=== PATIENT | male | born 1995 | race Hispanic/Latino ===

== ENCOUNTER 2020-12-25 11:29 | Emergency (ER) | payer SELFPAY ==
[2020-12-25] MEDS ORDERED: SODIUM CHLORIDE 0.9% 500 ML 500 ML IV ONE (11:51)
[2020-12-25] MEDS ORDERED: ACETAMINOPHEN 500 MG TAB PO STA (11:51)
[2020-12-25] MEDS ORDERED: ACETAMINOPHEN 500 MG TAB ONE (11:51)
[2020-12-25 12:12] LABS: Basophils % (Auto) 0.4 % (0.0-1.8); Eosinophils % (Auto) 0.2 % (0.0-4.3); Hematocrit 44.2 % (35.5-45.6); Hemoglobin 15.1 gm/dl (11.8-15.2); Lymphocytes # (Auto) 1.6 K/mm3 (1.2-5.4); Lymphocytes % (Auto) 11.8 % (13.4-35.0); Mean Corpuscular HGB Conc 34 % (32-34); Mean Corpuscular Volume 87 fl (84-94); Monocytes # (Auto) 1.6 K/mm3 (0.0-0.8); Platelet Count 332 K/mm3 (140-440); Red Cell Distribution Width 12.7 % (13.2-15.2)
--- NOTE | 2020-12-25 12:15 | Event Note ---
ED Screening Note Date of service: 12/25/20 Time: 12:11 ED Screening Note: Pt presents with c/o fever, and URI symptoms Pt reports he has been having issues with his sinuses x 1 week. Mainly left retroorbital and left maxillary area. He has been taking OTC meds without relief. He states he started with subjective fever last night, feeling dizzy and Sore throat He reports mild ASHRAF and slight nausea. He denies cough, SOB, wheezing, neck pain, abdominal pain or UTI symptoms VS show pt with elevated temp of 101 and HR of 142 -- CODE sepsis was initiated This initial assessment/diagnostic orders/clinical plan/treatment(s) is/are subject to change based on patients health status, clinical progression and re- assessment by fellow clinical providers in the ED. Further treatment and workup at subsequent clinical providers discretion. Patient/guardian urged not to elope from the ED as their condition may be serious if not clinically assessed and managed. Initial orders include: Sepsis order set
[2020-12-25 12:22] LABS: INR 0.97 (0.87-1.13)
--- NOTE | 2020-12-25 12:32 | XRay Report ---
CHEST 2 VIEWS INDICATION: possible Sepsis. COMPARISON: None FINDINGS: Support devices: None. Heart: Within normal limits. Lungs: No acute air space or interstitial disease. Pleura: No significant pleural effusion. No pneumothorax. Additional findings: None. IMPRESSION: 1. No acute findings. Signer Name: Chris Madrid MD Signed: 12/25/2020 12:27 PM Workstation Name: [id number]
[2020-12-25 12:59] LABS: Alanine Aminotransferase 44 units/L (7-56); Albumin 4.3 g/dL (3.9-5); BUN/Creatinine Ratio 7; Blood Urea Nitrogen 6 mg/dL (9-20); Hemolysis Index 4
--- NOTE | 2020-12-25 13:44 | Emergency Department Report ---
ED General Adult HPI - General Chief complaint: Dental/Oral Stated complaint: i have sinus issues and my face and teeth hurt PUI?: Yes Time Seen by Provider: 12/25/20 13:21 Source: patient, RN notes reviewed Mode of arrival: Ambulatory Limitations: No Limitations - History of Present Illness Initial comments: The patient was evaluated in the emergency department for symptoms described in the history of present illness. He/she was evaluated in the context of the global COVID-19 pandemic, which necessitated consideration that the patient might be at risk for infection with the virus that causes COVID-19. Institutional protocols and algorithms that pertain to the evaluation of patients at risk for COVID-19 are in a state of rapid change based on information released by regulatory bodies including the CDC and federal and state organizations. These policies and algorithms were followed during the patient's care in the emergency department. Please note that these policies, procedures and recommendations changed on a rapid basis. During the entire history and physical examination, I had on complete personal protective equipment. This is a 25-year-old gentleman. He is not known to myself previously. He denies chronic medical conditions. He presents to the ER with a complaint of 1 week supraorbital facial pressure, and left retro-orbital and left maxillary pressure and pain. He endorses chills over the past few days, and he endorses dentalgia and dental pain over tooth #16, 17 and 18. There is no stridor or trismus. There is no malocclusion. He has some sensitivity to cold and heat. The patient denies significant neck pain, chest pain, abdominal pain, shortness of breath. He had some loss of taste a few days ago, but this is now resolved. No Covid exposures that he is aware of. No urinary symptoms. No diarrhea. He initially had some improvement with [id number] remedies, such as cold and and flu/sinus medicine, but now he feels somewhat worse. He also has a chronically "droopy" left eye, but he feels like his "droop" on the superior eyelid is more prominent than usual, and he also feels that his left cheek, and eyelids are more "puffy" than usual. -: Gradual, days(s) Location: head, face, eyes (Left periorbital region) Radiation: non-radiation Severity scale (0 -10): 9 Quality: aching Consistency: constant Improves with: medication, rest Worsens with: movement, other (Palpation) - Related Data Previous Rx's Medication Instructions Recorded Last Taken Type Acetaminophen [Non-Aspirin Extra 500 mg PO Q6HR PRN #30 tablet 12/25/20 Unknown Rx Strength] Amoxicillin/Potassium Clav 1 each PO BID #13 tablet 12/25/20 Unknown Rx [Augmentin 875-125 Tablet] Fluticasone [Flonase] 1 spray NS QDAY #1 bottle 12/25/20 Unknown Rx Ibuprofen [Motrin] 600 mg PO Q8H PRN #30 tablet 12/25/20 Unknown Rx Ondansetron [Zofran Odt] 4 mg PO Q8HR PRN #20 tab.rapdis 12/25/20 Unknown Rx Allergies Allergy/AdvReac Type Severity Reaction Status Date / Time No Known Allergies Allergy Unverified 12/25/20 11:48 ED Review of Systems ROS: Stated complaint: SINUS ISSUES/FEVER Other details as noted in HPI Constitutional: chills, fever. denies: malaise, weakness Eyes: denies: eye pain, eye discharge, vision change ENT: dental pain, congestion. denies: ear pain, throat pain, hearing loss, epistaxis Respiratory: denies: cough Cardiovascular: denies: chest pain Gastrointestinal: denies: abdominal pain Genitourinary: denies: dysuria Musculoskeletal: myalgia Neurological: headache. denies: weakness Hematological/Lymphatic: denies: easy bleeding ED Past Medical Hx - Past Medical History Previous Medical History?: No - Surgical History Past Surgical History?: No - Social History Smoking Status: Current Every Day Smoker Substance Use Type: None - Medications Home Medications: Home Medications Medication Instructions Recorded Confirmed Last Taken Type Acetaminophen [Non-Aspirin Extra 500 mg PO Q6HR PRN #30 tablet 12/25/20 Unknown Rx Strength] Amoxicillin/Potassium Clav 1 each PO BID #13 tablet 12/25/20 Unknown Rx [Augmentin 875-125 Tablet] Fluticasone [Flonase] 1 spray NS QDAY #1 bottle 12/25/20 Unknown Rx Ibuprofen [Motrin] 600 mg PO Q8H PRN #30 tablet 12/25/20 Unknown Rx Ondansetron [Zofran Odt] 4 mg PO Q8HR PRN #20 tab.rapdis 12/25/20 Unknown Rx ED Physical Exam - General Limitations: No Limitations General appearance: alert, anxious - Head Head exam: Present: atraumatic, normocephalic - Eye Eye exam: Present: PERRL, EOMI, periorbital swelling, other (Visual acuity intact to finger counting, color perception, reading at a close distance). Absent: normal appearance (Left eyelid appears to be minimally depressed, however, patient able to elevate without significant difficulty), nystagmus - ENT ENT exam: Present: mucous membranes dry, TM's normal bilaterally, normal external ear exam, other (There is maxillary sinus tenderness, there is frontal sinus tenderness. Patient has poor dentition. There is no stridor.) - Neck Neck exam: Present: normal inspection, full ROM. Absent: tenderness, meningismus - Respiratory Respiratory exam: Present: normal lung sounds bilaterally. Absent: respiratory distress, wheezes, rales, rhonchi, stridor, decreased breath sounds - Cardiovascular Cardiovascular Exam: Present: regular rate, normal rhythm, normal heart sounds. Absent: bradycardia, tachycardia, irregular rhythm, systolic murmur, diastolic murmur, rubs, gallop - GI/Abdominal GI/Abdominal exam: Present: soft. Absent: distended, tenderness, guarding, rebound, rigid, pulsatile mass - Rectal Rectal exam: Present: deferred - Extremities Exam Extremities exam: Present: normal inspection, full ROM, other (2+ pulses noted in the bilateral upper and lower extremities. There is no palpable cord. negative Homans sign. Muscular compartments are soft. The pelvis is stable.). Absent: pedal edema, calf tenderness - Back Exam Back exam: Present: normal inspection, full ROM. Absent: tenderness, CVA tenderness (R), CVA tenderness (L), paraspinal tenderness, vertebral tenderness - Neurological Exam Neurological exam: Present: alert, oriented X3, other (No facial droop. Tongue midline. Extraocular movements intact bilaterally. Facial sensation intact to light touch in V1, V2, V3 distribution bilaterally. 5 and a 5 strength in 4 extremities. Sensation intact to light touch in 4 extremities.) - Psychiatric Psychiatric exam: Present: anxious - Skin Skin exam: Present: warm, dry, intact, normal color. Absent: rash ED Course Vital Signs 12/25/20 12/25/20 12/25/20 11:46 13:25 13:47 Temperature 101.9 F H 99.4 F Pulse Rate 142 H 60 Respiratory 18 18 Rate Blood Pressure 133/78 Blood Pressure 116/75 [Left] O2 Sat by Pulse 97 96 Oximetry - Reevaluation(s) Reevaluation #1: 12/25/20 14:46 Differential diagnosis, including but not limited to: Sinusitis, cavernous sinus thrombosis, odontogenic infection, gingivitis, periodontal disease Assessment and plan: 25-year-old gentleman who is initially febrile and tachycardic, now resolved, who is protecting his airway, without stridor, or dysphonia, has what appears to be chronically poor dentition, who denies drug use, including methamphetamines, with supraorbital frontal sinus pain, left maxillary sinus pain, dental pain, and subjective swelling over his left eye. Extraocular movements are intact. There is no direct or consensual photophobia. Do not appreciate any cranial nerve deficits. Patient denies loss of visual acuity. Given fever and tachycardia, we will obtain CT scan of the facial bones to evaluate for deep space infection. Doubt COVID-19, but given fever, and report of loss of taste earlier on, will initiate isolation precautions. Patient counseled that he should follow-up with an outpatient physician or provider for dedicated outpatient COVID-19 testing. Blood cultures were prior to my personal evaluation of this patient. We do appreciate that the patient meets systemic inflammatory response syndrome cri teria. However, I think invasive bacteremic illness is unlikely at this time. 12/25/20 16:18 Reassessed. Tachycardia resolved. No active vomiting. Tolerating liquid feeds. Examination unchanged from prior. CT scan of the facial bones suggest left-sided sinusitis, without other acute surgical process. Patient will be given first dose of antibiotics here in the emergency room. Explained need for nasal decongestants, Flonase, as needed Afrin x2 days, close outpatient follow-up as well as a ntibiotics. Given that patient is presenting with over 7 days of symptoms, and is febrile, tachycardic and symptomatic, I think initiation of antibiotic therapy would be reasonable. This is very unlikely to be Covid. This is very unlikely to be invasive bacteremia. Tachycardia resolved. Patient afebrile at this time. Suitable for trial of outpatient management ED Medical Decision Making - Lab Data Result diagrams: 12/25/20 11:58 12/25/20 11:58 Vital Signs 12/25/20 12/25/20 12/25/20 11:46 13:25 13:47 Temperature 101.9 F H 99.4 F Pulse Rate 142 H 60 Respiratory 18 18 Rate Blood Pressure 133/78 Blood Pressure 116/75 [Left] O2 Sat by Pulse 97 96 Oximetry Lab Results 12/25/20 12/25/20 12/25/20 Range/Units 11:58 11:58 11:58 WBC 13.5 H (4.5-11.0) K/mm3 RBC 5.10 H (3.65-5.03) M/mm3 Hgb 15.1 (11.8-15.2) gm/dl Hct 44.2 (35.5-45.6) % MCV 87 (84-94) fl MCH 30 (28-32) pg MCHC 34 (32-34) % RDW 12.7 L (13.2-15.2) % Plt Count 332 (140-440) K/mm3 Lymph % (Auto) 11.8 L (13.4-35.0) % [place] % (Auto) 12.0 H (0.0-7.3) % Eos % (Auto) 0.2 (0.0-4.3) % Baso % (Auto) 0.4 (0.0-1.8) % Lymph # (Auto) 1.6 (1.2-5.4) K/mm3 [place] # (Auto) 1.6 H (0.0-0.8) K/mm3 Eos # (Auto) 0.0 (0.0-0.4) K/mm3 Baso # (Auto) 0.0 (0.0-0.1) K/mm3 Seg Neutrophils % 75.6 H (40.0-70.0) % Seg Neutrophils # 10.2 H (1.8-7.7) K/mm3 PT 12.7 (12.2-14.9) Sec. INR 0.97 (0.87-1.13) VBG pH (7.320-7.420) Sodium 138 (137-145) mmol/L Potassium 3.5 L (3.6-5.0) mmol/L Chloride 97.6 L (98-107) mmol/L Carbon Dioxide 27 (22-30) mmol/L Anion Gap 17 mmol/L BUN 6 L (9-20) mg/dL Creatinine 0.9 (0.8-1.3) mg/dL Estimated GFR > 60 ml/min BUN/Creatinine Ratio 7 % Glucose 120 H (75-100) mg/dL Lactic Acid (0.7-2.0) mmol/L Calcium 10.0 (8.4-10.2) mg/dL Total Bilirubin 1.00 (0.1-1.2) mg/dL AST 20 (5-40) units/L ALT 44 (7-56) units/L Alkaline Phosphatase 119 (35-129) units/L Total Protein 8.4 H (6.3-8.2) g/dL Albumin 4.3 (3.9-5) g/dL Albumin/Globulin Ratio 1.0 % 12/25/20 12/25/20 Range/Units 11:58 11:58 WBC (4.5-11.0) K/mm3 RBC (3.65-5.03) M/mm3 Hgb (11.8-15.2) gm/dl Hct (35.5-45.6) % MCV (84-94) fl MCH (28-32) pg MCHC (32-34) % RDW (13.2-15.2) % Plt Count (140-440) K/mm3 Lymph % (Auto) (13.4-35.0) % [place] % (Auto) (0.0-7.3) % Eos % (Auto) (0.0-4.3) % Baso % (Auto) (0.0-1.8) % Lymph # (Auto) (1.2-5.4) K/mm3 [place] # (Auto) (0.0-0.8) K/mm3 Eos # (Auto) (0.0-0.4) K/mm3 Baso # (Auto) (0.0-0.1) K/mm3 Seg Neutrophils % (40.0-70.0) % Seg Neutrophils # (1.8-7.7) K/mm3 PT (12.2-14.9) Sec. INR (0.87-1.13) VBG pH 7.429 H (7.320-7.420) Sodium (137-145) mmol/L Potassium (3.6-5.0) mmol/L Chloride (98-107) mmol/L Carbon Dioxide (22-30) mmol/L Anion Gap mmol/L BUN (9-20) mg/dL Creatinine (0.8-1.3) mg/dL Estimated GFR ml/min BUN/Creatinine Ratio % Glucose (75-100) mg/dL Lactic Acid 1.10 (0.7-2.0) mmol/L Calcium (8.4-10.2) mg/dL Total Bilirubin (0.1-1.2) mg/dL AST (5-40) units/L ALT (7-56) units/L Alkaline Phosphatase (35-129) units/L Total Protein (6.3-8.2) g/dL Albumin (3.9-5) g/dL Albumin/Globulin Ratio % - EKG Data -: EKG Interpreted by Dc EKG shows normal: sinus rhythm Rate: tachycardia - EKG Data When compared to previous EKG there are: previous EKG unavailable 12/25/20 14:46 EKG interpreted at 11: 56 AM Sinus rhythm, tachycardia, 108 bpm. Normal axis, QTC prolonged, atrial enlargement, no endorsement of chest pain. There is no prior for comparison. This is an abnormal EKG. This is not a STEMI. - Radiology Data Radiology results: pending, report reviewed, image reviewed X-ray of the chest, interpreted by myself, negative for acute finding CT sella turcica wo/w con, CT facial bones w con INDICATION: Left facial pain. TECHNIQUE: CT face. All CT scans at this location are performed using CT dose reduction for ALARA by means of automated exposure control. COMPARISON: None. FINDINGS: Facial bones: Facial bones are intact without fr acture. Mandibular condyles are well-seated within the glenoid fossa of the temporal mandibular joint. Sinuses: There is near complete opacification of left maxillary sinus, left anterior ethmoid air cells, and left frontal sinus. Opacification of the left infundibulum, hiatus semilunaris, and middle meatus. Spotty secretions are seen within the left maxillary sinus. Nasal septum is deviated to the left with a small osseous spur. No dehiscence of the medial orbital smalls, cribriform plates, or sphenoid sinus smalls. Nasal passageways are patent. The sphenoid sinuses, right ethmoid air cells, right maxillary sinus, and right frontal sinuses are well-aerated. Sella: Sella is not expanded. Infundibulum is midline. No sellar mass. Orbits: Globes are intact. Additional findings:No other significant abnormality. IMPRESSION: 1. Paranasal sinus disease demonstrating with left ostiomeatal unit obstruction pattern of involvement. Signer Name: Mauricio Farr MD Signed: 12/25/2020 2:46 PM Workstation Name: [id number] CHEST 2 VIEWS INDICATION: possible Sepsis. COMPARISON: None FINDINGS: Support devices: None. Heart: Within normal limits. Lungs: No acute air space or interstitial disease. Pleura: No significant pleural effusion. No pneumothorax. Additional findings: None. IMPRESSION: 1. No acute findings. Signer Name: Chris Madrid MD Signed: 12/25/2020 11:27 AM Workstation Name: [id number] Critical care attestation.: If time is entered above; I have spent that time in minutes in the direct care of this critically ill patient, excluding procedure time. ED Disposition Clinical Impression: Acute febrile illness Sinusitis Qualifiers: Sinusitis location: unspecified location Chronicity: acute Recurrence: not specified as recurrent Qualified Code(s): J01.90 - Acute sinusitis, unspecified Disposition: - TO HOME OR SELFCARE Is pt being admited?: No Does the pt Need Aspirin: No Condition: Good Instructions: Sinusitis, Adult, [id number], How to Perform a Sinus Rinse, [id number] Additional Instructions: Do not take metformin medication for the next 2 days. Take the pain medication, nausea medication as needed and directed, antibiotics as directed, avoid consumption of tobacco, smoke, alcohol, drugs, advance diet as tolerated. Please follow-up with your primary care doctor or ear nose and throat doctor within the next 5 to 7 days for repeat checkup and evaluation. Recommend outpatient COVID-19 testing. Cultures were sent today, and results will be available in the next 3 to 5 days. Please have primary care doctor or ear nose and throat doctor contact medical records department to obtain copies of laboratory studies, culture results, and follow-up on nonemergent incidental findings on radiology studies. Please return to the emergency room right away with new pain, worsened pain, migration of pain, change in mental status, confusion, projectile vomiting, inability to tolerate liquid feeds, new, worsened or different symptoms not present on the initial emergency room evaluation. Patient may take Afrin [id number], once every 12 hours, 1 spray per nostril, for 3 days total, if he so desires. Afrin should not be used more than once every 12 hours per nostril, and should not be used for more than 3 days consecutively. Local primary care doctor includes the following: Dr Indiana Wills Local ear nose and throat doctor includes the following: Dr Davi Brown Referrals: STEFAN WILLS MD [Staff Physician] - 3-5 Days CAROL VO MD [Referring] - 3-5 Days Forms: Work/School Release Form(ED)
[2020-12-25 13:47] VITALS: BP 116/75
[2020-12-25] MEDS ORDERED: LACTATED RINGERS 1,000 ML IV ONE (13:54)
[2020-12-25] MEDS ORDERED: SODIUM CHLORIDE 0.9% 500 ML 500 ML ONE (14:25)
[2020-12-25] MEDS ORDERED: SODIUM CHLORIDE 0.9% 1000 ML 500 ML IV ONE (14:26)
[2020-12-25] MEDS ORDERED: SODIUM CHLORIDE 0.9% 1000 ML 1,000 ML IV ONE (14:26)
--- NOTE | 2020-12-25 15:50 | Cat Scan Report ---
CT sella turcica wo/w con, CT facial bones w con INDICATION: Left facial pain. TECHNIQUE: CT face. All CT scans at this location are performed using CT dose reduction for ALARA by means of automated exposure control. COMPARISON: None. FINDINGS: Facial bones: Facial bones are intact without fracture. Mandibular condyles are well-seated within th e glenoid fossa of the temporal mandibular joint. Sinuses: There is near complete opacification of left maxillary sinus, left anterior ethmoid air cell s, and left frontal sinus. Opacification of the left infundibulum, hiatus semilunaris, and middle [place] tus. Spotty secretions are seen within the left maxillary sinus. Nasal septum is deviated to the left with a small osseous spur. No dehiscence of the medial orbital smalls, cribriform plates, or sphenoid sinus smalls. Nasal passageways are patent. The sphenoid sinuses, right ethmoid air cells, right maxi llary sinus, and right frontal sinuses are well-aerated. Sella: Sella is not expanded. Infundibulum is midline. No sellar mass. Orbits: Globes are intact. Additional findings:No other significant abnormality. IMPRESSION: 1. Paranasal sinus disease demonstrating with left ostiomeatal unit obstruction pattern of involvemen t. Signer Name: Mauricio Farr MD Signed: 12/25/2020 3:46 PM Workstation Name: [id number]
[2020-12-25] MEDS ORDERED: IBUPROFEN 400 MG TAB PO ONE (16:16)
[2020-12-25] MEDS ORDERED: AMOXICILLIN/K CLAV 875/125MG TAB PO ONE (16:16)
--- NOTE | 2020-12-26 10:34 | Electrocardiograph Report ---
[facility] Test Date: 2020-12-25 Test Time: 11:54:10 Pat Name: NIXON CERON Department: Room: Gender: M Dermatologist: ISRA : [id number] Requested By: RAFAEL RICHARDSON Order Number: [id number] Reading MD: Hamlet Klein Measurements Intervals Ash Rate: 108 P: 73 MO: 141 QRS: 83 QRSD: 63 T: -70 QT: 359 QTc: 481 Interpretive Statements Sinus tachycardia Probable left atrial enlargement Repol abnrm suggests ischemia, anterolateral No previous ECG available for comparison Electronically Signed On 12-26-2020 10:34:04 EDT by Hamlet Klein
== END 2020-12-25 17:58 | disposition home or self-care (01) ==
LOC: ED 11:29
DX: J01.90 Acute sinusitis, unspecified (principal); R50.9 Fever, unspecified; F17.200 Nicotine dependence, unspecified, uncomplicated; Z79.899 Other long term (current) drug therapy
CPT/HCPCS: 36415; 70482; 70487; 71046; 80053; 82140; 82550; 82805; 83735; 85025; 85610; 87040; 87086; 93005; 96360; 99284; J7040; Q9967